=== PATIENT | male | born 1995 | race Caucasian/White ===

== ENCOUNTER 2020-09-30 07:04 | Emergency (ER) | payer OTHER, MEDICAID, SELFPAY ==
[2020-09-30 07:05] VITALS: BP 117/63; PULSE 69; RESP 16; TEMP 36.8; O2SAT 99; BMI 21.7
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
[2020-09-30 07:41] LABS: COVID19 -Nasal RAPID Negative (Negative)
== END 2020-09-30 07:52 | disposition home or self-care (01) ==
PROVIDERS: Emergency Provider Emergency Medicine
DX: Z02.89 Encounter for other administrative examinations (principal); Z20.828 Contact with and (suspected) exposure to other viral communicable diseases; V89.2XXA Person injured in unspecified motor-vehicle accident, traffic, initial encounter
CPT/HCPCS: 87635; 99281; 99282